=== PATIENT | male | born 1990 | race Hispanic/Latino ===

== ENCOUNTER 2017-09-24 14:18 | Emergency (ER) | payer SELFPAY ==
[2017-09-24] MEDS ORDERED: ONDANSETRON 4 MG (ODT) TAB ONE (15:28)
[2017-09-24] MEDS ORDERED: TRAMADOL HCL 50 MG TAB ONE (15:29)
[2017-09-24] MEDS ORDERED: IBUPROFEN 400 MG TAB ONE (15:29)
--- NOTE | 2017-09-24 15:29 | EDPHYS ---
Physician Documentation [facility] Name: Armin Henderson Age: 27 yrs Sex: Male : 1990 Arrival Date: 09/24/2017 Time: 14:21 Bed 23 Private MD: None, None ED Physician Akin Desai HPI: 09/24 15:11 This 27 yrs old Male presents to ER via Ambulatory with complaints of cp Toothache. 15:11 The patient presents with broken tooth/teeth, pain. The problem is located in the upper cp left third molar. Onset: The symptoms/episode began/occurred today. Duration: The symptoms are continuous. Associated signs and symptoms: Pertinent negatives: fever. Historical: - Allergies: 14:25 No Known Allergies; aj - Home Meds: 14:25 None [Active]; aj - PMHx: 14:25 None; aj - PSHx: 14:25 None; aj - Immunization history:: Adult Immunizations up to date. - Social history:: Smoking status: Patient uses tobacco products, smokes one-half pack cigarettes per day. - Ebola Screening: : Patient negative for fever greater than or equal to 101.5 degrees Fahrenheit, and additional compatible Ebola Virus Disease symptoms Patient denies exposure to infectious person Patient denies travel to an Ebola-affected area in the 21 days before illness onset No symptoms or risks identified at this time. ROS: 15:15 Constitutional: Negative for body aches, chills, fever, poor PO intake. cp 15:15 Eyes: Negative for injury, pain, redness, and discharge. cp 15:15 ENT: Positive for dental pain, left upper jaw pain, Negative for drainage from ear(s), ear pain, sore throat, difficulty swallowing, difficulty handling secretions. 15:15 Neck: Negative for pain with movement, pain at rest, stiffness, swollen nodes, tenderness. 15:15 Cardiovascular: Negative for chest pain. 15:15 Respiratory: Negative for cough, shortness of breath, wheezing. 15:15 Abdomen/GI: Negative for abdominal pain, nausea, vomiting, and diarrhea. 15:15 Skin: Negative for cellulitis, rash. 15:15 Neuro: Negative for altered mental status, headache, weakness. 15:15 All other systems are negative. Exam: 15:18 Constitutional: The patient appears in no acute distress, alert, awake, non-toxic, well cp developed, well nourished, uncomfortable. 15:18 Head/Face: Normocephalic, atraumatic. cp 15:18 Eyes: Periorbital structures: appear normal, Pupils: equal, round, and reactive to light and accomodation, Extraocular movements: intact throughout, Conjunctiva: normal, no exudate, no injection, Sclera: no appreciated abnormality, Lids and lashes: appear normal, bilaterally. 15:18 ENT: External ear(s): are unremarkable, Ear canal(s): are normal, clear, TM's: bulging, is not appreciated, bilaterally, erythema, is not appreciated, bilaterally, Nose: is normal, Mouth: Lips: moist, Oral mucosa: pink and intact, moist, Gums: normal with healthy appearance, Tongue: is normal, abscess, is not appreciated, Posterior pharynx: is normal, airway is patent, no erythema, no exudate, Dental exam: abscess, is not appreciated, fractured teeth are noted, specifically the upper left third molar (#16), gum swelling, not appreciated, pain, that is moderate, specifically in the upper left third molar (#16), Voice: is normal. 15:18 Neck: ROM/movement: is normal, is supple, without pain, no range of motions limitations, no nuchal rigidity, Lymph nodes: no appreciated lymphadenopathy. 15:18 Chest/axilla: Inspection: normal, Palpation: is normal, no crepitus, no tenderness. 15:18 Cardiovascular: Rate: normal, Rhythm: regular. 15:18 Respiratory: the patient does not display signs of respiratory distress, Respirations: normal, no use of accessory muscles, no retractions, no splinting, no tachypnea, labored breathing, is not present, Breath sounds: are clear throughout, no decreased breath sounds, no stridor, no wheezing. 15:18 Abdomen/GI: Exam negative for discomfort, distension, guarding, Inspection: abdomen appears normal. 15:18 Skin: cellulitis, is not appreciated, no rash present. Vital Signs: 14:25 BP 135 / 77; Pulse 67; Resp 16; Temp 98.3; Pulse Ox 97% on R/A; Weight 74.39 kg; Height aj 5 ft. 7 in. (170.18 cm); Pain 10/10; 16:06 BP 128 / 80; Pulse 72; Resp 18; Pulse Ox 99% ; tl3 14:25 Body Mass Index 25.69 (74.39 kg, 170.18 cm) aj MDM: 15:06 Patient medically screened. cp 15:08 Patient medically screened. [facility] 15:15 Differential diagnosis: dental caries, dental abscess, pericoronitis. 15:27 Data reviewed: vital signs, nurses notes, and as a result, I will discharge patient. 15:27 Counseling: I had a detailed discussion with the patient and/or guardian regarding: the cp historical points, exam findings, and any diagnostic results supporting the discharge/admit diagnosis, the need for outpatient follow up, a dentist. Administered Medications: 15:31 Drug: Ibuprofen 800 mg Route: PO; tl3 16:07 Follow up: Response: Medication administered at discharge. tl3 15:31 Drug: traMADol 50 mg Route: PO; tl3 16:07 Follow up: Response: Medication administered at discharge. tl3 15:31 Drug: Zofran 4 mg Route: PO; tl3 16:07 Follow up: Response: Medication administered at discharge. tl3 Disposition: 09/25 06:33 Co-signature as Attending Physician, Akin Desai MD I agree with the assessment and [facility] plan of care. Disposition: 09/24/17 15:28 Discharged to Home. Impression: Jaw pain - Left Upper. - Condition is Stable. - Discharge Instructions: Dental Pain. - Prescriptions for Amoxicillin 875 mg Oral Tablet - take 1 tablet by ORAL route every 12 hours for 10 days; 20 tablet. Tramadol 50 mg Oral Tablet - take 1 tablet by ORAL route every 8 hours as needed; 12 tablet. Naprosyn 500 mg Oral Tablet - take 1 tablet by ORAL route 2 times per day take with food; 20 tablet. - Medication Reconciliation Form, Thank You Letter, Antibiotic Education, Prescription Opioid Use form. - Follow up: Private Physician; When: dentist; Reason: next 2 days. - Problem is new. - Symptoms have improved. Signatures: Medina Ricketts RN Akin Jiang MD MD cha Page, Corey, PA PA cp Lowrey, Tammy, RN RN tl3 Corrections: (The following items were deleted from the chart) 09/24 16:09 15:28 09/24/2017 15:28 Discharged to Home. Impression: Jaw pain - Left Upper. Condition tl3 is Stable. Forms are Medication Reconciliation Form, Thank You Letter, Antibiotic Education, Prescription Opioid Use. Follow up: Private Physician; When: dentist; Reason: next 2 days. Problem is new. Symptoms have improved. cp
--- NOTE | 2017-09-24 15:29 | ER ---
Nurse's Notes [facility] Name: Armin Henderson Age: 27 yrs Sex: Male : 1990 Arrival Date: 09/24/2017 Time: 14:21 Bed 23 Private MD: None, None Diagnosis: Jaw pain-Left Upper Presentation: 09/24 14:24 Presenting complaint: Patient states: Left upper tooth pain to broken tooth since 1300 aj today. Transition of care: patient was not received from another setting of care. Onset of symptoms was September 24, 2017. Risk Assessment: Do you want to hurt yourself or someone else? Patient reports no desire to harm self or others. Initial Sepsis Screen: Does the patient meet any 2 criteria? No. Patient's initial sepsis screen is negative. Does the patient have a suspected source of infection? No. Patient's initial sepsis screen is negative. Care prior to arrival: None. 14:24 Method Of Arrival: Ambulatory aj 14:24 Acuity: XU 5 aj Triage Assessment: 14:25 General: Appears in no apparent distress. uncomfortable, Behavior is calm, cooperative, aj appropriate for age. Pain: Complains of pain in upper left third molar. EENT: Reports pain in upper left third molar. Neuro: Level of Consciousness is awake, alert, obeys commands, Oriented to person, place, time, situation, Appropriate for age. Respiratory: Airway is patent Respiratory effort is even, unlabored, Respiratory pattern is regular, symmetrical. Derm: Skin is intact, is healthy with good turgor, Skin is pink, warm \T\ dry. normal. Historical: - Allergies: 14:25 No Known Allergies; aj - Home Meds: 14:25 None [Active]; aj - PMHx: 14:25 None; aj - PSHx: 14:25 None; aj - Immunization history:: Adult Immunizations up to date. - Social history:: Smoking status: Patient uses tobacco products, smokes one-half pack cigarettes per day. - Ebola Screening: : Patient negative for fever greater than or equal to 101.5 degrees Fahrenheit, and additional compatible Ebola Virus Disease symptoms Patient denies exposure to infectious person Patient denies travel to an Ebola-affected area in the 21 days before illness onset No symptoms or risks identified at this time. Screenin:46 Abuse screen: Denies threats or abuse. Nutritional screening: No deficits noted. tl3 Tuberculosis screening: No symptoms or risk factors identified. Fall Risk None identified. Assessment: 14:46 General: Appears distressed, uncomfortable, slender, well groomed, well developed, well tl3 nourished, Behavior is calm, cooperative, crying. Pain: Complains of pain in face and upper left third molar and mouth Pain currently is 10 out of 10 on a pain scale. Neuro: No deficits noted. Level of Consciousness is awake, alert, obeys commands, Oriented to person, place, time, situation, Appropriate for age. Cardiovascular: Patient's skin is warm and dry. Respiratory: Airway is patent Respiratory effort is even, unlabored, Respiratory pattern is regular, symmetrical. GI: No signs and/or symptoms were reported involving the gastrointestinal system. : No signs and/or symptoms were reported regarding the genitourinary system. EENT: Reports pain in mouth. Derm: Skin temperature is warm. Musculoskeletal: No signs and/or symptoms reported regarding the musculoskeletal system. Vital Signs: 14:25 BP 135 / 77; Pulse 67; Resp 16; Temp 98.3; Pulse Ox 97% on R/A; Weight 74.39 kg; Height aj 5 ft. 7 in. (170.18 cm); Pain 10/10; 16:06 BP 128 / 80; Pulse 72; Resp 18; Pulse Ox 99% ; tl3 14:25 Body Mass Index 25.69 (74.39 kg, 170.18 cm) aj ED Course: 14:21 Patient arrived in ED. mr 14:21 None, None is Private Physician. mr 14:24 Triage completed. aj 14:25 Arm band placed on left wrist. Patient placed in waiting room, Patient notified of wait aj time. 14:46 Margo Leon, RN is Primary Nurse. tl3 14:46 Patient has correct armband on for positive identification. tl3 14:46 No provider procedures requiring assistance completed. tl3 15:06 Akin Cardenas PA is PHCP. cp 15:06 Akin Desai MD is Attending Physician. cp 16:06 Patient did not have IV access during this emergency room visit. tl3 Administered Medications: 15:31 Drug: Ibuprofen 800 mg Route: PO; tl3 16:07 Follow up: Response: Medication administered at discharge. tl3 15:31 Drug: traMADol 50 mg Route: PO; tl3 16:07 Follow up: Response: Medication administered at discharge. tl3 15:31 Drug: Zofran 4 mg Route: PO; tl3 16:07 Follow up: Response: Medication administered at discharge. tl3 Outcome: 15:28 Discharge ordered by . cp 15:35 Discharged to home ambulatory. tl3 15:35 Condition: stable 15:35 Instructed on discharge instructions, follow up and referral plans. medication usage, Demonstrated understanding of instructions, follow-up care, medications, Prescriptions given X 3. 16:09 Patient left the ED. tl3 Signatures: Medina Ricketts, RN RN Abbie Spencer Corey, PA PA cp Lowrey, Tammy, ANGELO RN tl3
== END 2017-09-24 16:09 | disposition home or self-care (01) ==
LOC: ER 14:18
DX: R68.84 Jaw pain (principal); F17.210 Nicotine dependence, cigarettes, uncomplicated
CPT/HCPCS: 99283